=== PATIENT | male | born 1975 | race Caucasian/White ===

== ENCOUNTER 2016-09-28 16:44 | Emergency (ER) | payer OTHER ==
[~2016-09-28] VITALS: Ht 182.9 cm; Wt 75.8 kg
[~2016-09-28 16:44] MED LIST: ALEVE220 M2 PO; AMLODIPINE BESYL5 MG PO; AMOX TR-K CLV1 EAC4 PO; ASPIR-LOW81 MG PO; CLONIDINE HCL0.1 MG PO; DESYREL100 MG PO; DIVALPROEX SOD250 MG PO; DULOXETINE HCL20 MG PO; FOLIC ACID1 MG PO; LIBRIUM25 MG PO; LYRICA150 MG PO; METHADONE10 MG PO; Methadone PO; NARCAN4 MG NS; NEURONTIN800 MG PO; NOHOMEMEDS; Paxil PO; THERAGRAN1 TABLET PO; THIAMINE HCL100 MG PO; TRAZODONE HCL100 MG PO; TRAZODONE HCL50 MG PO; Thiamine,Vitamin B1 PO; VITAMIN B-1100 MG PO; Vancomycin IV; ZOFRAN4 MG PO
[2016-09-28 17:31] LABS: HEMATOCRIT 45.2 % (38.0-50.0); MCH 28.1 PG (29.0-34.0); MCHC 35.6 G/DL (30.0-36.0); MCV 78.9 FL (86-99); MEAN PLAT.VOLUME 10.9 uM^3 (9.0-12.4); PLATELET COUNT 160 K/uL (156-360); RBC DIS.WIDTH-CV 13.2 % (11.8-14.6); RBC DIS.WIDTH-SD 37.2 % (39-53); RED BLOOD COUNT 5.73 M/uL (4.00-5.50); WHITE BLOOD COUNT 20.1 K/uL (4.1-10.2)
[2016-09-28 17:40] LABS: CHLORIDE 82 mEq/L (99-109); POTASSIUM 3.1 mEq/L (3.7-5.4); SODIUM 132 mEq/L (136-147)
[2016-09-28 17:43] LABS: GLUCOSE 94 mg/dL (70-99)
[2016-09-28 17:44] LABS: ANION GAP 14 MEQ/L (2-14); TOTAL BILIRUBIN 1.7 mg/dL (0.0-1.0)
[2016-09-28 17:45] LABS: SERUM ETHYL ALCOHOL < 10 mg/dL
[2016-09-28 17:46] LABS: ALKALINE PHOSPHATASE 114 IU/L (3-129); GFR ESTIMATE (CALCULATED) > 59 mL/min/
[2016-09-28 17:47] LABS: UREA NITROGEN (BUN) 10 mg/dL (9-23)
[2016-09-28 18:41] LABS: ADD MIUA? YES; BILIRUBIN NEGATIVE; BLOOD SMALL; COLOR COLORLESS ((YELLOW)); GLUCOSE (STRIP) NEGATIVE; KETONES NEGATIVE; LEUKOCYTES NEGATIVE; NITRITE NEGATIVE; PROTEIN (STRIP) NEGATIVE; SPECIFIC GRAVITY 1.002 (1.000-1.030); UROBILINOGEN 0.2 MG/DL (0.2-1.0)
[2016-09-28 18:43] LABS: BACTERIA RARE /HPF; EPITHELIAL CELLS NONE SEEN /HPF; MUCUS TRACE /LPF; RED BLOOD CELLS 0-5 /HPF (0-5); WHITE BLOOD CELLS NONE SEEN /HPF (0-5)
[2016-09-28 18:51] LABS: AMPHETAMINE NEGATIVE (500 ng/mL); BARBITURATES NEGATIVE (200 ng/mL); BENZODIAZEPINES NEGATIVE (150 ng/mL); COCAINE NEGATIVE (150 ng/mL); INTERNAL CONTROLS VALID? YES; METHADONE NEGATIVE (200 ng/mL); METHAMPHETAMINE NEGATIVE (500 ng/mL); OPIATES (MORPHINE) NEGATIVE (100 ng/mL); OXYCODONE NEGATIVE (100 ng/mL); PHENCYCLIDINE NEGATIVE (25 ng/mL); PROPOXYPHENE NEGATIVE (300 ng/mL); THC CANNABINOIDS NEGATIVE (50 ng/mL); TRICYCLIC ANTIDEPRESSANTS NEGATIVE (300 ng/mL)
[2016-09-28 20:28] VITALS: BP 126/93
== END 2016-09-28 20:48 | disposition home or self-care (01) ==
LOC: EME 16:44
PROVIDERS: Emergency Medicine
DX: S06.0X0A Concussion without loss of consciousness, initial encounter (principal); S00.31XA Abrasion of nose, initial encounter; W08.XXXA Fall from other furniture, initial encounter; F11.20 Opioid dependence, uncomplicated; K21.9 Gastro-esophageal reflux disease without esophagitis; I25.2 Old myocardial infarction
CPT/HCPCS: 70450; 80053; 81003; 85027; 99281; 99284; G0480; J7030

== ENCOUNTER 2016-09-29 11:56 | Emergency (ER) | payer OTHER ==
[~2016-09-29] VITALS: Ht 182.9 cm; Wt 76.6 kg
[2016-09-29 13:13] LABS: EOSINOPHIL (%) 0.1 % (0-5); IMMATURE GRANULOCYTE (%) 0.8 % (0.0-0.7); IMMATURE GRANULOCYTE COUNT 0.1 K/uL; INSTRUMENT ABS NEUTROPHIL CT 11.2 K/uL; LYMPHOCYTE COUNT 1.9 K/uL (1.0-2.8); MCH 28.2 PG (29.0-34.0); MCHC 34.5 G/DL (30.0-36.0); MCV 81.6 FL (86-99); MEAN PLAT.VOLUME 10.9 uM^3 (9.0-12.4); MONOCYTE (%) 7.7 % (3-12); MONOCYTE COUNT 1.1 K/uL (0-0.8); NEUTROPHIL (%) 77.8 % (45-76); NEUTROPHIL COUNT 11.2 K/uL (1.8-6.4); PLATELET COUNT 130 K/uL (156-360); RBC DIS.WIDTH-CV 13.4 % (11.8-14.6); RBC DIS.WIDTH-SD 39.4 % (39-53); WHITE BLOOD COUNT 14.4 K/uL (4.1-10.2)
[2016-09-29 13:17] LABS: CHLORIDE 90 mEq/L (99-109); POTASSIUM 3.1 mEq/L (3.7-5.4); SODIUM 133 mEq/L (136-147)
[2016-09-29 13:18] LABS: GLUCOSE 88 mg/dL (70-99)
[2016-09-29 13:20] LABS: ANION GAP 10 MEQ/L (2-14)
[2016-09-29 13:21] LABS: SERUM ETHYL ALCOHOL < 10 mg/dL
[2016-09-29 13:22] LABS: GFR ESTIMATE (CALCULATED) > 59 mL/min/
[2016-09-29 13:23] LABS: UREA NITROGEN (BUN) 13 mg/dL (9-23)
[2016-09-29 15:20] LABS: ADD MIUA? NO; BILIRUBIN NEGATIVE; BLOOD NEGATIVE; COLOR YELLOW ((YELLOW)); GLUCOSE (STRIP) NEGATIVE; KETONES 5; LEUKOCYTES NEGATIVE; NITRITE NEGATIVE; PROTEIN (STRIP) 30; SPECIFIC GRAVITY 1.008 (1.000-1.030); UROBILINOGEN 0.2 MG/DL (0.2-1.0)
[2016-09-29 15:31] LABS: AMPHETAMINE NEGATIVE (500 ng/mL); BARBITURATES NEGATIVE (200 ng/mL); BENZODIAZEPINES NEGATIVE (150 ng/mL); COCAINE NEGATIVE (150 ng/mL); METHADONE NEGATIVE (200 ng/mL); METHAMPHETAMINE NEGATIVE (500 ng/mL); OPIATES (MORPHINE) NEGATIVE (100 ng/mL); PHENCYCLIDINE NEGATIVE (25 ng/mL); THC CANNABINOIDS NEGATIVE (50 ng/mL); TRICYCLIC ANTIDEPRESSANTS NEGATIVE (300 ng/mL)
[2016-09-29 15:32] LABS: INTERNAL CONTROLS VALID? YES; OXYCODONE NEGATIVE (100 ng/mL); PROPOXYPHENE NEGATIVE (300 ng/mL)
[2016-09-29 16:04] VITALS: BP 134/86
== END 2016-09-29 16:14 | disposition home or self-care (01) ==
LOC: EME 11:56
PROVIDERS: Emergency Medicine
DX: F19.10 Other psychoactive substance abuse, uncomplicated (principal); R44.3 Hallucinations, unspecified; I25.2 Old myocardial infarction; K21.9 Gastro-esophageal reflux disease without esophagitis
CPT/HCPCS: 80048; 81003; 85025; 90839; 99281; 99284; G0480

== ENCOUNTER 2016-10-04 23:12 | Emergency (ER) | payer OTHER ==
[~2016-10-04] VITALS: Ht 182.9 cm; Wt 76.6 kg
[2016-10-04 23:19] VITALS: BP 112/60
[2016-10-05 00:28] LABS: POTASSIUM 3.3 mEq/L (3.7-5.4)
[2016-10-05 00:29] LABS: CHLORIDE 102 mEq/L (99-109); GLUCOSE 121 mg/dL (70-99); SODIUM 144 mEq/L (136-147)
[2016-10-05 00:31] LABS: ANION GAP 13 MEQ/L (2-14)
[2016-10-05 00:32] LABS: SERUM ETHYL ALCOHOL 279 mg/dL
[2016-10-05 00:33] LABS: GFR ESTIMATE (CALCULATED) > 59 mL/min/
[2016-10-05 00:34] LABS: UREA NITROGEN (BUN) 8 mg/dL (9-23)
[2016-10-05 00:36] LABS: CREATINE KINASE 68 IU/L (1-294); EOSINOPHIL COUNT 0.1 K/uL (0-0.3); HEMATOCRIT 44.5 % (38.0-50.0); IMMATURE GRANULOCYTE (%) 0.6 % (0.0-0.7); IMMATURE GRANULOCYTE COUNT 0.1 K/uL; INSTRUMENT ABS NEUTROPHIL CT 5.7 K/uL; LYMPHOCYTE COUNT 2.7 K/uL (1.0-2.8); MCH 28.3 PG (29.0-34.0); MCHC 33.9 G/DL (30.0-36.0); MCV 83.3 FL (86-99); MEAN PLAT.VOLUME 9.9 uM^3 (9.0-12.4); MONOCYTE (%) 13.8 % (3-12); MONOCYTE COUNT 1.4 K/uL (0-0.8); NEUTROPHIL (%) 57.7 % (45-76); NEUTROPHIL COUNT 5.7 K/uL (1.8-6.4); RBC DIS.WIDTH-CV 14.6 % (11.8-14.6); RBC DIS.WIDTH-SD 43.5 % (39-53); RED BLOOD COUNT 5.34 M/uL (4.00-5.50); WHITE BLOOD COUNT 9.9 K/uL (4.1-10.2)
[2016-10-05 00:37] LABS: PLATELET COUNT 232 K/uL (156-360)
== END 2016-10-05 01:03 | disposition left against medical advice (07) ==
LOC: EME → EDBD 23:12 → EME 10-05 01:03
PROVIDERS: Emergency Medicine
DX: R56.9 Unspecified convulsions (principal); R45.1 Restlessness and agitation; S00.31XA Abrasion of nose, initial encounter; W19.XXXA Unspecified fall, initial encounter; Z87.820 Personal history of traumatic brain injury; R00.0 Tachycardia, unspecified; I45.10 Unspecified right bundle-branch block; Y90.8 Blood alcohol level of 240 mg/100 ml or more
CPT/HCPCS: 80048; 81003; 82550; 85025; 93005; 99281; 99285; G0480; J2405

== ENCOUNTER 2016-10-08 00:19 | Inpatient (IN) | payer OTHER ==
[~2016-10-08] VITALS: Ht 182.9 cm; Wt 85.2 kg
[2016-10-08 00:59] LABS: HEMATOCRIT 45.7 % (38.0-50.0); MCH 28.6 PG (29.0-34.0); MCHC 34.4 G/DL (30.0-36.0); MCV 83.4 FL (86-99); MEAN PLAT.VOLUME 9.7 uM^3 (9.0-12.4); PLATELET COUNT 260 K/uL (156-360); RBC DIS.WIDTH-CV 14.7 % (11.8-14.6); RBC DIS.WIDTH-SD 43.7 % (39-53); RED BLOOD COUNT 5.48 M/uL (4.00-5.50); WHITE BLOOD COUNT 20.2 K/uL (4.1-10.2)
[2016-10-08 01:10] LABS: CHLORIDE 100 mEq/L (99-109); POTASSIUM 3.3 mEq/L (3.7-5.4); SODIUM 140 mEq/L (136-147)
[2016-10-08 01:12] LABS: GLUCOSE 139 mg/dL (70-99)
[2016-10-08 01:13] LABS: ANION GAP 14 MEQ/L (2-14)
[2016-10-08 01:15] LABS: SERUM ETHYL ALCOHOL 338 mg/dL
[2016-10-08 01:16] LABS: GFR ESTIMATE (CALCULATED) > 59 mL/min/; UREA NITROGEN (BUN) 3 mg/dL (9-23)
[2016-10-08 05:27] LABS: SALICYLATE < 5.0 MG/DL (15-30)
[2016-10-08 06:32] LABS: TOTAL BILIRUBIN 0.4 mg/dL (0.0-1.0)
[2016-10-08 06:33] LABS: ALKALINE PHOSPHATASE 115 IU/L (3-129)
[2016-10-08 06:35] LABS: DIRECT BILIRUBIN 0.1 mg/dL (0.0-0.3)
[2016-10-08 06:36] LABS: LIPASE 201 U/L (1.0-51.0)
[2016-10-08 08:22] LABS: COCAINE NEGATIVE (150 ng/mL); METHAMPHETAMINE NEGATIVE (500 ng/mL); PHENCYCLIDINE NEGATIVE (25 ng/mL); THC CANNABINOIDS NEGATIVE (50 ng/mL)
[2016-10-08 08:23] LABS: AMPHETAMINE NEGATIVE (500 ng/mL); BARBITURATES NEGATIVE (200 ng/mL); BENZODIAZEPINES NEGATIVE (150 ng/mL); INTERNAL CONTROLS VALID? YES; METHADONE NEGATIVE (200 ng/mL); OPIATES (MORPHINE) NEGATIVE (100 ng/mL); OXYCODONE NEGATIVE (100 ng/mL); PROPOXYPHENE NEGATIVE (300 ng/mL); TRICYCLIC ANTIDEPRESSANTS NEGATIVE (300 ng/mL)
[2016-10-08 13:12] LABS: ADD MIUA? NO; BILIRUBIN NEGATIVE; BLOOD NEGATIVE; COLOR STRAW ((YELLOW)); GLUCOSE (STRIP) NEGATIVE; KETONES NEGATIVE; LEUKOCYTES NEGATIVE; NITRITE NEGATIVE; PROTEIN (STRIP) NEGATIVE; SPECIFIC GRAVITY 1.018 (1.000-1.030); UCUL ADDED? NO; UROBILINOGEN 0.2 MG/DL (0.2-1.0)
[2016-10-08] MEDS ORDERED: SUBOXONE 8 MG-1 EAC2 SL (14:15)
[2016-10-08] MEDS ORDERED: DESYREL100 MG PO (14:15)
[2016-10-08] MEDS ORDERED: DEPAKOTE125 MG PO (14:16)
[2016-10-08 17:47] VITALS: BP 146/88
[2016-10-08 20:06] VITALS: BP 153/74
[2016-10-08 23:40] VITALS: BP 172/81
[2016-10-09 04:03] VITALS: BP 131/80
[2016-10-09 06:14] LABS: ALKALINE PHOSPHATASE 114 IU/L (3-129); ANION GAP 8 MEQ/L (2-14); CHLORIDE 103 MEQ/L (99-109); GFR ESTIMATE (CALCULATED) > 59 mL/min/; SAMPLE HEMOLYSIS CHECK 0; SAMPLE ICTERIC CHECK 0; SAMPLE LIPEMIA CHECK 0; SODIUM 139 MEQ/L (136-147); TOTAL BILIRUBIN 0.7 MG/DL (0.0-1.0); UREA NITROGEN (BUN) 4 mg/dL (9-23)
[2016-10-09 06:37] LABS: GLUCOSE 90 mg/dL (70-99); POTASSIUM 4.1 MEQ/L (3.7-5.4)
[2016-10-09 06:43] LABS: HEMATOCRIT 41.2 % (38.0-50.0); MCH 28.5 PG (29.0-34.0); MCV 86.4 FL (86-99); RBC DIS.WIDTH-CV 15.1 % (11.8-14.6); RBC DIS.WIDTH-SD 46.3 % (39-53); RED BLOOD COUNT 4.77 M/uL (4.00-5.50); WHITE BLOOD COUNT 9.3 K/uL (4.1-10.2)
[2016-10-09 06:45] LABS: MEAN PLAT.VOLUME 9.8 uM^3 (9.0-12.4); PLAT.SUFFICIENCY ADEQUATE
[2016-10-09 06:48] LABS: PLATELET COUNT 160 K/uL (156-360)
[2016-10-09 09:17] VITALS: BP 110/74
[2016-10-09 09:21] LABS: DIRECT BILIRUBIN 0.2 mg/dL (0.0-0.3); LIPASE 70 U/L (1.0-51.0)
[2016-10-09 12:44] VITALS: BP 132/88
[2016-10-09 15:00] VITALS: BP 122/74
[2016-10-09 18:52] VITALS: BP 129/67
[2016-10-10] VITALS: BP 154/96
[2016-10-10 07:27] VITALS: BP 152/74
[2016-10-10 11:18] VITALS: BP 138/88
[2016-10-10 15:48] VITALS: BP 167/88
[2016-10-10 20:00] VITALS: BP 130/83
[2016-10-10 23:59] VITALS: BP 127/81
[2016-10-11 07:45] VITALS: BP 138/92
[2016-10-11 11:26] VITALS: BP 145/102
[2016-10-11 15:20] VITALS: BP 144/64
[2016-10-11 20:11] VITALS: BP 141/89
[2016-10-11 23:44] VITALS: BP 129/83
[2016-10-12 03:30] VITALS: BP 139/81
[2016-10-12 07:27] VITALS: BP 112/67
[2016-10-12 11:10] VITALS: BP 135/79
[2016-10-12 15:16] VITALS: BP 122/58
[2016-10-12 20:10] VITALS: BP 138/80
[2016-10-13 00:37] VITALS: BP 113/74
[2016-10-13 03:57] VITALS: BP 110/71
[2016-10-13 07:29] VITALS: BP 100/61
[2016-10-13] MEDS ORDERED: OXYCODONE HCL5 MG PO (11:19)
[2016-10-13 11:23] VITALS: BP 117/75
== END 2016-10-13 12:48 | disposition home or self-care (01) | DRG 439 ==
LOC: EME 00:19 → 5SOUTH 11:51 → EDOF 11:51 → 5SOUTH 17:00
PROVIDERS: Emergency Medicine; Internal Medicine
DX: K85.90 Acute pancreatitis without necrosis or infection, unspecified (principal); R65.10 Systemic inflammatory response syndrome (SIRS) of non-infectious origin without acute organ dysfunction; F10.239 Alcohol dependence with withdrawal, unspecified; F10.229 Alcohol dependence with intoxication, unspecified; Y90.8 Blood alcohol level of 240 mg/100 ml or more; R45.851 Suicidal ideations; F33.9 Major depressive disorder, recurrent, unspecified; E87.6 Hypokalemia; F14.10 Cocaine abuse, uncomplicated; F11.10 Opioid abuse, uncomplicated; R16.0 Hepatomegaly, not elsewhere classified; K76.0 Fatty (change of) liver, not elsewhere classified; G89.29 Other chronic pain; M54.9 Dorsalgia, unspecified; K29.70 Gastritis, unspecified, without bleeding; K21.9 Gastro-esophageal reflux disease without esophagitis; K70.9 Alcoholic liver disease, unspecified; F17.200 Nicotine dependence, unspecified, uncomplicated
CPT/HCPCS: 71010; 74177; 80048; 80053; 80076; 81003; 82248; 83605; 83690; 83735; 85027; 87040; 90839; 93970; 99281; 99285; G0480; J1170; J1650; J2060; J2270; J2405; J2765; J3411; J7030; S0028

== ENCOUNTER 2016-10-15 00:42 | Emergency (ER) | payer OTHER ==
[~2016-10-15] VITALS: Ht 182.9 cm; Wt 77.2 kg
[~2016-10-15 00:42] MED LIST changes: +DEPAKOTE125 MG PO; +OXYCODONE HCL5 MG PO; +SUBOXONE 8 MG-1 EAC2 SL
[2016-10-15 02:53] VITALS: BP 107/66
== END 2016-10-15 02:54 | disposition home or self-care (01) ==
LOC: EME → EDBD 00:42 → EME 02:54
DX: F10.229 Alcohol dependence with intoxication, unspecified (principal); F32.9 Major depressive disorder, single episode, unspecified; I25.2 Old myocardial infarction; K21.9 Gastro-esophageal reflux disease without esophagitis
CPT/HCPCS: 99281; 99284

== ENCOUNTER 2017-08-12 17:56 | Emergency (ER) | payer OTHER | END 2017-08-12 18:00 | LOC: EME 17:56 | PROC: 5A12012 Performance of Cardiac Output, Single, Manual (ICD-10-PCS; principal; 2017-08-12) | DX: I46.9 Cardiac arrest, cause unspecified (principal) | CPT/HCPCS: 80048; 81003; 82150; 83605; 83690; 84484; 85025; 85610; 85730; 86850; 86900; 86901; 87040; 90832; 99281; 99285; G0480; J0171; J2310 ==